=== PATIENT | female | born 1960 | race Caucasian/White ===

== ENCOUNTER 2024-12-18 09:13 | Outpatient (CLI) | payer MEDICARE, BC, SELFPAY | END 2024-12-18 09:14 | disposition home or self-care (01) | PROVIDERS: PCP Family Medicine; Visit Provider Family Medicine | DX: E78.2 Mixed hyperlipidemia (principal); I10 Essential (primary) hypertension; E11.9 Type 2 diabetes mellitus without complications; D64.9 Anemia, unspecified; Z79.4 Long term (current) use of insulin | CPT/HCPCS: 80048; 80061; 85025 ==

== ENCOUNTER 2025-01-15 06:32 | Day surgery (SDC) | payer MEDICARE, BC, SELFPAY ==
[2025-01-15] VITALS (36 sets, daily range): BP systolic 64–129; BP diastolic 33–83; PULSE 62–97; RESP 12–18; TEMP 35.3–36.7; O2SAT 91–100; BMI 47.4
--- NOTE | 2025-01-15 07:02 | W.PM.H&PU ---
History & Physical Update History & Physical Update H&P Reviewed and patient assessed: No changes noted
[2025-01-15] MEDS: SODIUM CHLORIDE 0.9 % (FLUSH) 10 ML SYRINGE IVF (07:45)
[2025-01-15] MEDS: LACTATED RINGERS 1000 ML 1,000 ML 100 ML IV ×3 (07:45→11:46)
[2025-01-15] MEDS: OXYCODONE (CR) 10 MG TAB.ER.12H PO (07:45)
[2025-01-15] MEDS: ACETAMINOPHEN 500 MG TABLET 1000 MG PO ×3 (07:45→20:18)
[2025-01-15] MEDS: MIDAZOLAM HCL 1 MG/ML inj IVP (08:30)
--- NOTE | 2025-01-15 08:30 | SUR.PREOP ---
TIME?OUT:?0829 PT/RN/MDA?VERIFICATION?OF?SURGICAL?SITE-RIGHT HIP, NERVE BLOCK,?PROCEDURE,?AND?CONSENT OBTAINED?PRIOR?TO?INVASIVE?PROCEDURE.
--- NOTE | 2025-01-15 08:36 | P.NB_ITS ---
Nerve Block Nerve Block Time Seen by Provider: 08:35 Date Seen: 01/15/25 Type of block requested by surgeon for post-operative analgesia: TABATHA/LFCN Side: right Time out performed: Yes Verification of patient name: Yes Verification of date of : Yes Site marking: site marked Name of person performing procedure: Brandt Continuous monitoring Was continuous monitoring of O2 sat, B/P, predatory animal exterminator, recorded every 15 minutes?: Yes Procedure Checklist: sterile prep, needles and gloves Ultrasound guided. Images saved: Yes Medications given in 5ml increments after negative aspiration: Ropivicaine %: 0.5 mL: 30 Needle gauge: 20 Precedex (mcg): 25 Patient tolerated procedure well: Yes Additional comments: Needle noted below psoas tendon needle noted adjacent to LFCN Block Charges Block Charge (with Pro Fee): Other Periph Nerve Block Use of Ultrasound Machine for Block: Yes- US Guidance/pain block
--- NOTE | 2025-01-15 08:45 | CRLHL7_ITS ---
For Patients: As a result of the Cures Act, medical imaging exams and procedure reports are released immediately into your electronic medical record. You may view this report before your referring provider. If you have questions, please contact your health care provider. Indication: Hip replacement surgery Technique: AP hip fluoroscopic image. Fluoroscopy time 40.5 seconds. Findings/Impression: Hardware from a right total hip arthroplasty is in satisfactory position. Dictated by Jack Woods MD @ 01/15/2025 12:13:15 PM (Electronically Signed)
[2025-01-15] MEDS: TRANEXAMIC ACID 100 MG/ML INJ 1000 MG IV (09:19)
--- NOTE | 2025-01-15 09:28 | CRLHL7_ITS ---
For Patients: As a result of the Cures Act, medical imaging exams and procedure reports are released immediately into your electronic medical record. You may view this report before your referring provider. If you have questions, please contact your health care provider. INDICATION: Post right hip arthroplasty TECHNIQUE: AP view of the pelvis as well as AP and lateral projections of the right hip COMPARISON: : Today`s intraoperative images FINDINGS: Immediate postop change of right total hip arthroplasty. Prosthetic components well-seated and aligned. IMPRESSION: : Immediate post postop change of right total hip arthroplasty without evidence of complication Dictated by Robert Chong MD @ 01/15/2025 4:54:30 PM (Electronically Signed)
--- NOTE | 2025-01-15 10:30 | P.ANES_ITS ---
Anesthesia Charges Start Date/Time Anesthesia Start Date: 01/15/25 Anesthesia Start Time: 08:55 Stop Date/Time Anesthesia Stop Date: 01/15/25 Anesthesia Stop Time: 11:44 Coding CPT Codes CPT Codes: ANESTH HIP ARTHROPLASTY - 25676 ([id number]) P3 - PATIENT W/SEVERE SYS DISEASE, QK - JOB SUPERINTENDENT 2-4 CNCRNT ANES PROC, QX - SENIOR PRODUCT CONSULTANT SVC W/ MD MED DIRECTION
--- NOTE | 2025-01-15 10:30 | W.ANESCHARGE ---
Anesthesia Charges Start Date/Time Anesthesia Start Date: 01/15/25 Anesthesia Start Time: 08:55 Stop Date/Time Anesthesia Stop Date: 01/15/25 Anesthesia Stop Time: 11:44 Coding CPT Codes CPT Codes: ANESTH HIP ARTHROPLASTY - 84292 ([id number]) P3 - PATIENT W/SEVERE SYS DISEASE, QK - CASHIER CREDIT 2-4 CNCRNT ANES PROC, QX - BACKEND DEVELOPER SVC W/ MD MED DIRECTION
--- NOTE | 2025-01-15 11:11 | P.ORPRC_ITS ---
Procedure Note Date of procedure: 01/15/25 Procedure: PREOPERATIVE DIAGNOSIS: 1. Right hip osteoarthritis, severe, primary 2. Morbid obesity POSTOPERATIVE DIAGNOSIS: 1. Right hip osteoarthritis, severe, primary 2. Morbid obesity PROCEDURE: 1. Right total hip arthroplasty-anterior approach- a modifier 22 is worthy as the patient's body habitus (BMI 47.4 and 1129.3 kg) made the surgical approach and procedure much more difficult. There is ~ 4 cm of subcutaneous fat before we gained access to the superficial fascia of the TFL. Beyond that, longer retractors and more assistants were needed. This overall added ~ 40-50% of time to our typical surgical case for a total hip replacement. 2. 72831 - intraoperative fluoroscopy up to 1 hour. SURGEON: Hill Escalona MD. PAINTER AND PAPERHANGER APPRENTICE: TAMIE Almonte; José Luis Lyles PA-C; - Of note, a skilled architectural administrative assistant was critical for this case to aid in patient positioning, tissue retraction, limb manipulation/positioning, and closure. ANESTHESIA: General endotracheal anesthetic EBL: 800ml IMPLANTS: DePuy J&J uncemented total hip [place] cup size 46, hole eliminator, +0 neutral liner Actis stem, high offset, size 3 +1.5 mm ceramic 28 mm head COMPLICATIONS: None evident INDICATIONS: The patient is a pleasant 64-year-old female who has experienced severe right hip pain and difficulty bearing weight. Workup included x-rays which revealed severe osteoarthrosis in the hip. Given the deformity, the dysfunction, and the pain, as well as the failure of nonoperative management, recommendation was made for surgery. FINDINGS: Full-thickness chondral loss throughout the femoral head. Not only conical shape to the femoral head in 7 severe call, but actually had an erosion of the superior femur had been gouged against the acetabular edge. Tremendous wear. DESCRIPTION OF PROCEDURE: Following a thorough discussion of risks, benefits, and alternatives consent was obtained and the right hip was marked. The patient was brought to the operating room and placed supine on the operating table. Induction of anesthesia was undertaken. 3 g IV Ancef and 1 g tranexamic acid was administered within 1 hr of incision preoperatively. Proper time-out was performed identifying proper patient, site, procedure. The operative extremity was prepped and draped in the appropriate sterile fashion using ChloraPrep after the patient was positioned on the [place] table with head in neutral alignment and all bony prominences well padded. C-arm fluoroscopic imaging was utilized to confirm proper pelvis rotation and position, and to get true AP films of both the contralateral left, and the affected right hip. This is for comparison. A longitudinal incision was made starting approximately 1 cm distal to the ASIS, and 2-3 cm lateral. The incision was extended distally aiming toward the fibular head. Sharp incision through skin and bovie cautery through the subcutaneous tissue allowed identification of the TFL fascia. This was sharply divided, and the fascia bluntly released from the muscle fibers as we dissected medial. Upon coming to the medial border, we were able to retract the TFL laterally, and penetrated the deeper fascia and identify the crossing circumflex vessels. These were ligated/cauterized. The rectus was elevated from the capsule, and retractors placed laterally and medially along the femoral neck to help with visualization of the capsule. We then performed an inverted T capsulotomy. The capsule was tagged for later repair. Retractors were placed inside the capsule. The femoral neck was visualized after releasing medially down to the lesser trochanter, along the saddle laterally, and up onto the acetabulum. The femoral neck cut was made in line with our preoperative templating. The head was removed in a single piece, and sized. We turned our attention to acetabular preparation. Initially, the labrum was resected from around the perimeter, the pulvinar was excised, allowing us to visualize the false wall. We started the reaming with a 43 mm reamer. This was medialized down to the true wall. We then enlarged our reamers sequentially up to one size less than the selected cup size. We trialed at the same size and found it to have an excellent fit. The selected cup was then opened, inserted, and impacted in line with the goal of 40? of abduction, and 20-25? of anteversion. This was confirmed on C-arm fluoroscopic imaging to be in the appropriate/goal position. Once the cup was placed we placed a hole eliminator and a liner consistent with preop planning. Attention was turned to the femoral preparation. The limb was extended, externally rotated, and adducted. The posteromedial capsule was released, as retractors were placed allowing excellent access to the proximal femur. Initially a binder and box builder was followed by canal finder followed by various broaches . We broached sequentially up to the size noted above, found it to have excellent rotational control, and trialing various heads and necks, revealed that appropriate neck offset, and the above noted head size provided the greatest stability, and hoahaoism of length, and offset. C-arm fluoroscopic imaging confirmed position of the stem, as well as leg lengths, which were compared with the pre procedure all fluoroscopic images. Trial implants were removed, the real femoral stem inserted, as was the appropriate head. After reducing, the leg was placed through range of motion and stability was confirmed anterior, posterior, and lateral. A 3 min Betadine soak was then performed, and thorough irrigation with normal saline followed. Closure of the capsule was performed with #1 PDS. Bleeding was confirmed to be controlled at this stage, and the TFL fascia was closed with #0 strata fix. Subcutaneous, and subcuticular closure was performed with 2-0 Stratafix and 4-0 Stratafix, respectively. Dressings were applied, and the patient was awoken from anesthesia and transferred the PACU in stable condition. A skilled architectural administrative assistant was critical for this case to aid in patient positioning, ti ssue retraction, acetabular and proximal femoral exposure, limb manipulation/positioning, dislocation/relocation, patient safety, and closure. * Again, given the patient's body habitus (BMI 47.4 and 1129.3 kg) made the surgical approach and procedure much more difficult. There is ~ 4 cm of subcutaneous fat before we gained access to the superficial fascia of the TFL. Beyond that, longer retractors and more assistants were needed. This overall added ~ 40-50% of time to our typical surgical case for a total hip replacement. PLAN: 1. Weight bear as tolerated operative extremity. 2. 23 hr perioperative antibiotics. 3. Ice. 4. PT/OT consults for ambulation assistance/mobility education. 5. Social work consult for discharge planning. 6. DVT prophylaxis with at SCDs and Xarelto x5 days followed by aspirin for a total of 1 month.
--- NOTE | 2025-01-15 11:45 | P.ANES_ITS ---
Anesthesia Charges Start Date/Time Anesthesia Start Date: 01/15/25 Anesthesia Start Time: 08:55 Stop Date/Time Anesthesia Stop Date: 01/15/25 Anesthesia Stop Time: 11:44 Coding CPT Codes CPT Codes: ANESTH HIP ARTHROPLASTY - 37555 ([id number]) P3 - PATIENT W/SEVERE SYS DISEASE, QK - MERCERIZER 2-4 CNCRNT ANES PROC, QX - CUSTOM FEED MILL OPERATOR SVC W/ MD MED DIRECTION
--- NOTE | 2025-01-15 11:45 | W.ANESCHARGE ---
Anesthesia Charges Start Date/Time Anesthesia Start Date: 01/15/25 Anesthesia Start Time: 08:55 Stop Date/Time Anesthesia Stop Date: 01/15/25 Anesthesia Stop Time: 11:44 Coding CPT Codes CPT Codes: ANESTH HIP ARTHROPLASTY - 29972 ([id number]) P3 - PATIENT W/SEVERE SYS DISEASE, QK - VALUER 2-4 CNCRNT ANES PROC, QX - AUTOMOBILE BODY CUSTOMIZER SVC W/ MD MED DIRECTION
[2025-01-15] MEDS: PHENYLEPHRINE 100 MCG/ML SYRINGE IVP ×3 (11:53→12:13)
[2025-01-15] MEDS: MEPERIDINE 25 MG/ML INJ 12.5 MG IVP (11:57)
[2025-01-15] MEDS: ONDANSETRON 2 MG/ML inj 4 MG IVP (13:11)
[2025-01-15] MEDS: LACTATED RINGERS 1000 ML 1,000 ML 75 ML IV ×2 (13:14→20:19)
--- NOTE | 2025-01-15 14:34 | REH.PT ---
2 attempts to see patient for PT eval this PM, pt with low BP per nsg, to eval in AM
--- NOTE | 2025-01-15 16:06 | PM.IMCN1 ---
Date of Consult Consult date: 01/15/25 Requesting Physician: Orthopedics Primary Care Provider: Jack Helm MD Consult Narrative Reason for consult: Medical management of comorbidities Narrative: Meena Alvarenga is a 64 year old female who presented to the hospital today for an elective R ETHEL with Dr. Escalona of Orthopedic Surgery. There were no surgical or anesthetic complications noted during procedure, EBL was 800mL. Postoperatively, had hypotension with associated nausea, BP uri 76/46. No lightheadedness or pre-syncope. Responded well to IVFs with increase in BP to 110s/60s (baseline BP 126/70). No tachycardia, HR in the 70s. Patient's H&P reviewed, PCP is Dr. Helm. Past medical history significant for: IDDM2 (last A1c 6.0), osteoarthritis, hyperlipidemia, urge incontinence. History of blood clots: No Postoperative plan: Home with Review of Systems Status of ROS: Reports: 10 or more systems reviewed and unremarkable except as noted in History and below [facility] Medical History (Updated 01/15/25 @ 16:24 by Ashlyn Hancock MD) Mixed hyperlipidemia ?E78.2 - Mixed hyperlipidemia (ICD-10) Primary hypertension ?I10 - Essential (primary) hypertension (ICD-10) Type 2 diabetes mellitus, with long-term current use of insulin ?E11.9 - Type 2 diabetes mellitus without complications (ICD-10) ?Z79.4 - [facility] (current) use of insulin (ICD-10) Peripheral neuropathy ?G62.9 - Polyneuropathy, unspecified (ICD-10) Myofascial pain syndrome ?M79.18 - Myalgia, other site (ICD-10) Sensorineural hearing loss (SNHL) of both ears ?H90.3 - Sensorineural hearing loss, bilateral (ICD-10) GERD (gastroesophageal reflux disease) ?K21.9 - Gastro-esophageal reflux disease without esophagitis (ICD-10) Osteoarthritis of left hip ?M16.12 - Unilateral primary osteoarthritis, left hip (ICD-10) Morbid obesity ?E66.01 - Morbid (severe) obesity due to excess calories (ICD-10) Overactive bladder ?N32.81 - Overactive bladder (ICD-10) Fibromyalgia ?M79.7 - Fibromyalgia (ICD-10) Cystoid macular degeneration ?H35.359 - Cystoid macular degeneration, unspecified eye (ICD-10) Colon polyps ?K63.5 - Polyp of colon (ICD-10) Chronic anemia ?D64.9 - Anemia, unspecified (ICD-10) IBS (irritable bowel syndrome) ?K58.9 - Irritable bowel syndrome, unspecified (ICD-10) Surgical History (Updated 01/15/25 @ 16:23 by Ashlyn Hancock MD) S/P hip replacement ?Z96.649 - Presence of unspecified artificial hip joint (ICD-10) History of total right hip arthroplasty (01/15/25) ?Z96.641 - Presence of right artificial hip joint (ICD-10) History of vaginal hysterectomy ?Z90.710 - Acquired absence of both cervix and uterus (ICD-10) History of cataract surgery ?Z98.49 - Cataract extraction status, unspecified eye (ICD-10) History of tonsillectomy and adenoidectomy ?Z90.89 - Acquired absence of other organs (ICD-10) S/P laparotomy ?Z98.890 - Other specified postprocedural states (ICD-10) S/P trigger finger release ?Z98.890 - Other specified postprocedural states (ICD-10) H/O esophagogastroduodenoscopy ?Z98.890 - Other specified postprocedural states (ICD-10) History of right mastoidectomy (04/14/23) ?Z90.89 - Acquired absence of other organs (ICD-10) History of cholecystectomy (2005) ?Z90.49 - Acquired absence of other specified parts of digestive tract (ICD-10) History of placement of ear tubes ?Z96.22 - Myringotomy tube(s) status (ICD-10) Family History (Updated 12/11/24 @ 10:00 by Delia Ordaz) Mother Diabetes High blood pressure High cholesterol Throat cancer Coronary artery disease Sister Sarcoma Lung cancer Brother Prostate cancer Alcohol dependence Father Alcohol dependence High blood pressure Coronary artery disease Aunt Breast cancer Ovarian cancer Son ADD (attention deficit disorder) Rheumatoid arthritis Aunt Rheumatoid arthritis Social History (Updated 12/19/24 @ 08:43 by Madelin Sánchez MLT) Narrative: , two kids, lives with her son and grandson, retired, no EtOH What is your current living situation?: I presently have a place to live Problems where you live: no known problems In the past 12 months, utilities in danger of being shut off: no In past 12 months, lack of transportation kept you from medical appts, meetings, work, or getting things needed for daily living: no In the past 12 mos, have been you worried that your food would run out before you had money to buy more?: never true In the past 12 mos, the food you bought just didn't last and you didn't have money to buy more?: never true Highest level of school completed/degree received: high school graduate Smoking Status: Former smoker Do you use any of these nicotine containing products: None Second hand tobacco smoke exposure: No How often do you have a drink containing alcohol: monthly or less Alcohol type: wine How many standard drinks containing alcohol do you have on a typical day: 1 or 2 How often do you have six or more drinks on one occasion: Never AUDIT-C Alcohol total score: 1 Non-prescribed substance use: denies use Caffeine: Yes (ocassional coffee) How often does anyone, including family, friends and others, physically hurt you: never How often does anyone, including family, friends and others, insult or talk down to you: never How often does anyone, including family, friends and others, threaten you with harm: never How often does anyone, including family, friends and others, scream or curse at you: never service: No Meds Home Medications and Allergies Home Medications ?Medication ?Instructions ?Recorded ?Confirmed ?Type flash glucose sensor (FreeStyle #1 ea 04/07/24 12/18/24 History Melissa 2 Sensor kit) vitamin A-vitamin C-vit E-min 1 tab PO QDAY 11/21/24 01/15/25 History tablet atorvastatin 10 mg tablet 5 mg (1/2 x 10 mg) PO DAILY #45 12/19/24 01/15/25 Rx tabs gabapentin 600 mg tablet 1,200 mg (2 x 600 mg) PO TID #540 12/19/24 01/15/25 Rx tabs insulin glargine 100 unit/mL (3 18 unit (0.18 mL) subcut QPM 90 12/19/24 01/15/25 Rx mL) subcutaneous pen (Lantus days #30 mL Solostar U-100 Insulin) insulin lispro 100 unit/mL 8 unit (0.08 mL) subcut TID 90 12/19/24 01/15/25 Rx subcutaneous pen (Humalog KwikPen days #30 mL (U-100) Insulin) lisinopril 2.5 mg tablet 2.5 mg PO DAILY #90 tabs 12/19/24 01/15/25 Rx nabumetone 750 mg tablet 750 mg PO DAILY #90 tabs 12/19/24 01/15/25 Rx oxybutynin chloride 5 mg tablet 5 mg PO DAILY #90 tabs 12/19/24 01/15/25 Rx Allergies Allergy/AdvReac Type Severity Reaction Status Date / Time No Known Drug Allergies Allergy Verified 01/15/25 06:50 Exam Narrative: Exam Narrative: GEN: Alert and oriented, laying comfortably in bed, answering questions appropriately HEENT: Normal external ears, EOMIs bilaterally, no scleral icterus CV: RRR, No concerning murmurs R: LCTA bilaterally without concerning wheezing Ext: wwp, wearing BLE SCDs Skin: No concerning skin lesions or rashes on exposed skin Neuro: No focal deficits, mentating appropriately Psych: Appropriate Const: Vital Signs, click to edit/add: Vital Signs - 24 hr 01/15/25 07:37 01/15/25 08:30 01/15/25 08:35 Temperature 97.3 F L Pulse Rate 74 71 71 Pulse Rate [Right Pulse Oximeter] Respiratory Rate 16 12 12 Blood Pressure 127/72 111/59 L 91/65 Blood Pressure [Ri ght Arm] Pulse Oximetry 97 92 91 Oxygen Delivery Me thod Room Air Nasal Cannula Nasal Cannula Oxygen Flow Rate 2 2 01/15/25 08:40 01/15/25 08:45 01/15/25 11:40 Temperature 97.3 F L Pulse Rate 72 76 68 Pulse Rate [Right Pulse Oximeter] Respiratory Rate 12 12 12 Blood Pressure 92/83 91/51 L 80/44 L Blood Pressure [Ri ght Arm] Pulse Oximetry 94 93 98 Oxygen Delivery Me thod Nasal Cannula Nasal Cannula Nasal Cannula Oxygen Flow Rate 2 2 2 01/15/25 11:45 01/15/25 11:50 01/15/25 11:55 Temperature 97.6 F Pulse Rate 71 71 68 Pulse Rate [Right Pulse Oximeter] Respiratory Rate 12 12 14 Blood Pressure 83/67 L 84/52 L 98/57 L Blood Pressure [Ri ght Arm] Pulse Oximetry 96 99 98 Oxygen Delivery Me thod Nasal Cannula Nasal Cannula Nasal Cannula Oxygen Flow Rate 2 2 2 01/15/25 12:00 01/15/25 12:05 01/15/25 12:10 Temperature 97.6 F Pulse Rate 68 64 64 Pulse Rate [Right Pulse Oximeter] Respiratory Rate 14 14 14 Blood Pressure 83/51 L 93/45 L 74/55 L Blood Pressure [Ri ght Arm] Pulse Oximetry 100 97 97 Oxygen Delivery Me thod Nasal Cannula Nasal Cannula Nasal Cannula Oxygen Flow Rate 2 2 2 01/15/25 12:15 01/15/25 12:20 01/15/25 12:31 Temperature 95.5 F L Pulse Rate 70 70 Pulse Rate [Right Pulse Oximeter] 64 Respiratory Rate 14 14 18 Blood Pressure 108/80 129/83 Blood Pressure [Ri ght Arm] 76/46 L Pulse Oximetry 99 99 95 Oxygen Delivery Me thod Nasal Cannula Nasal Cannula Nasal Cannula Oxygen Flow Rate 2 2 2 01/15/25 12:48 01/15/25 13:03 01/15/25 13:18 Temperature 95.5 F L 96.0 F L 95.9 F L Pulse Rate 64 63 62 Pulse Rate [Right Pulse Oximeter] Respiratory Rate 18 18 16 Blood Pressure 76/46 L 70/42 L 67/47 L Blood Pressure [Ri ght Arm] Pulse Oximetry 95 95 92 Oxygen Delivery Me thod Nasal Cannula Nasal Cannula Nasal Cannula Oxygen Flow Rate 2 2 2 01/15/25 13:20 01/15/25 13:30 01/15/25 13:40 Temperature 96.2 F L 96.2 F L 96.9 F L Pulse Rate 70 70 68 Pulse Rate [Right Pulse Oximeter] Respiratory Rate 18 18 18 Blood Pressure 78/54 L 83/52 L 89/57 L Blood Pressure [Ri ght Arm] Pulse Oximetry 99 94 96 Oxygen Delivery Me thod Nasal Cannula Nasal Cannula Nasal Cannula Oxygen Flow Rate 2 2 1.5 01/15/25 14:00 01/15/25 14:30 01/15/25 15:00 Temperature 96.4 F L 96.8 F L 96.8 F L Pulse Rate 72 71 74 Pulse Rate [Right Pulse Oximeter] Respiratory Rate 18 18 18 Blood Pressure 101/59 L 90/60 84/54 L Blood Pressure [Ri ght Arm] Pulse Oximetry 96 93 95 Oxygen Delivery Me thod Nasal Cannula Nasal Cannula Nasal Cannula Oxygen Flow Rate 1.5 1 1 01/15/25 15:00 01/15/25 15:30 Temperature 97.5 F L Pulse Rate Pulse Rate [Right Pulse Oximeter] 76 Respiratory Rate 16 Blood Pressure Blood Pressure [Ri ght Arm] 95/61 Pulse Oximetry 97 97 Oxygen Delivery Me thod Room Air Room Air Oxygen Flow Rate Assessment and Plan Assessment and plan (1) S/P hip replacement: Problem comment: - RIGHT, 01/15/25, Dr. Escalona Status: Acute (2) Postoperative hypotension: Problem comment: - possibly iatrogenic from anesthesia vs acute blood loss 2/2 surgery - follow Hgb and VS - baseline BP 120/70s Status: Acute Plan - follow Hgb and VS - pain management and prophylaxis per orthopedic surgery team - continue home medications for comorbidities - anticipate routine postoperative course - updated bedside, questions answered
[2025-01-15] MEDS: CEFAZOLIN 3 GM in 0.9 % SODIUM CHLORIDE Mini-bag 100 ML IVPB (17:18)
[2025-01-15] MEDS: INSULIN LISPRO 100 UNIT/ML 8 EACH SUBCUT (18:45)
[2025-01-15] MEDS: INSULIN LISPRO 100 UNIT/ML SUBCUT (19:35)
[2025-01-15 19:46] LABS: Hemoglobin* 10.3 gm/dL (12.0-16.0)
[2025-01-15] MEDS: GABAPENTIN 600 MG TABLET 1200 MG PO (20:18)
[2025-01-15] MEDS: SENNOSIDES 1 TAB TABLET 2 TAB PO (20:18)
[2025-01-15] MEDS: 0.9 % SODIUM CHLORIDE 500 ML IV (20:19)
--- NOTE | 2025-01-15 23:07 | PC.NURSE ---
End of Shift: Patient pleasant and cooperative. Afebrile. Dressing to right hip C/D/I. CMS intact. Rating pain up to 8/10 and PRN Oxycodone given x2. Tolerating regular diet with no nausea. BP continues to be in the 90s-100 systolic at times, denies any lightheadedness/dizziness at rest. Patient up with 2 assist, walker and gait belt to chair. Patient c/o dizziness when up, BP decreased. Updated MD. Hemoglobin drawn and 500 mL bolus given. Jennings patent and patient had 125 mL and 150 mL output, updated MD.
[2025-01-16] VITALS (8 sets, daily range): BP systolic 86–112; BP diastolic 51–66; PULSE 88–101; RESP 16; TEMP 36.8–37.7; O2SAT 96–98
[2025-01-16] MEDS: CEFAZOLIN 3 GM in 0.9 % SODIUM CHLORIDE Mini-bag 100 ML IVPB (00:31)
[2025-01-16] MEDS: ACETAMINOPHEN 500 MG TABLET 1000 MG PO ×2 (00:35→07:47)
--- NOTE | 2025-01-16 05:27 | PC.NURSE ---
Shift note: Patient's Bp has been soft this shift and has been monitored hourly. No significantly decreased. The lowest Bp was 88/59. Patient has been in the recliner throughout the shift. Dressing intact, clean and dry. Ice pack applied. has been with patient in room for the entire night.
[2025-01-16 06:54] LABS: Hematocrit 32.9 % (33.0-51.0); Hemoglobin* 10.6 gm/dL (12.0-16.0); Immature Granulocytes Pct Auto 0.3 %; Lymphocytes Absolute Auto 2.30 K/uL (0.90-2.90); Mean Corpuscular HGB Conc 32 gm/dL (32-36); Mean Corpuscular Hemoglobin 29 pg (26-34); Mean Corpuscular Volume 91 fL (80-100); RDW Coefficient of Variation % 13.6 % (11.5-15.5); Red Blood Count 3.63 m/uL (4.00-5.20); White Blood Count* 15.47 K/uL (4.50-11.00)
[2025-01-16 07:04] LABS: Immature Granulocytes Abs Auto 0.00 K/uL (0.00-0.30)
[2025-01-16 07:05] LABS: Slide Review Reflex No
[2025-01-16 07:08] LABS: Chloride* 99 mmol/L (96-114); Sodium* 130 mmol/L (135-149)
[2025-01-16 07:09] LABS: Potassium* 4.5 mmol/L (3.6-5.1)
[2025-01-16 07:11] LABS: Blood Urea Nitrogen* 25 mg/dL (7-30); Creatinine* 1.2 mg/dL (0.5-1.5); Est. Creatinine Clearance* 41.50; Estimated Glomerular Filt Rate 50 ml/min
[2025-01-16 07:12] LABS: Anion Gap 5 mEq/L (7-15); Calcium* 8.4 mg/dL (8.4-10.6); Carbon Dioxide* 26 mmol/L (20-32); Glucose* 149 mg/dL (60-115)
[2025-01-16] MEDS: INSULIN LISPRO 100 UNIT/ML SUBCUT ×2 (07:49→12:43)
[2025-01-16] MEDS: INSULIN LISPRO 100 UNIT/ML 8 EACH SUBCUT ×2 (07:49→12:43)
--- NOTE | 2025-01-16 08:20 | PC.SOCIAL ---
Discharge planning: SW met with patient and partner who state that they have everything they need at home. Patient reports that she has been getting prepared for the last few weeks and feels like she is ready to go home. SW to assist if needs arise.
[2025-01-16] MEDS: GABAPENTIN 600 MG TABLET 1200 MG PO (09:10)
[2025-01-16] MEDS: RIVAROXABAN 10 MG TABLET PO (09:11)
[2025-01-16] MEDS: SENNOSIDES 1 TAB TABLET 2 TAB PO (09:11)
[2025-01-16] MEDS: ATORVASTATIN CALCIUM 10 MG TABLET 5 MG PO (09:12)
--- NOTE | 2025-01-16 10:39 | PM.ORPN ---
Subjective Subjective Date Seen: 01/16/25 Principal diagnosis: Status postop day 1, right total hip arthroplasty - anterior approach Interval history: Patient reports doing well. No acute events over night. Pain managed with scheduled and PRN medications, ice. DVT prophylaxis: Rivaroxaban, SCDs, walking. Denies fevers, chills, aches, N/V, CP, SOB/LARSON, or lightheadedness. Passing flatus. Per chart review and nurse comments, she is demonstrating softer blood pressures in not producing normal amounts of urine. Jennings catheter in place. Ortho Exam Narrative Exam Narrative: -Patient appears comfortable in recliner; no apparent acute distress -Alert and oriented times 3 -Operative hip swollen; soft tissues supple; no obvious erythema. Ecchymosis minimal. Warmth appropriate -Surgical dressing clean, dry, intact; no obvious drainage, no erythematous streaking peripheral to the bandage. Abdominal pannus covers the wound and bandage completely -Bilateral calves soft and supple; no significant swelling, edema, tenderness, erythema, discoloration, warmth, or palpable cords -2+ DP/PT pulses, intact dermatomes and myotomes distally (5/5 strength). No numbness about the lateral femoral cutaneous nerve distribution. -Jennings catheter in place Const Vital Signs, click to edit/add: Vital Signs - 24 hr 01/15/25 11:40 01/15/25 11:45 01/15/25 11:50 Temperature 97.3 F L Pulse Rate 68 71 71 Pulse Rate [Right Pulse Oximeter] Respiratory Rate 12 12 12 Blood Pressure 80/44 L 83/67 L 84/52 L Blood Pressure [Left Arm] Blood Pressure [Right Arm] Pulse Oximetry 98 96 99 Oxygen Delivery Method Nasal Cannula Nasal Cannula Nasal Cannula Oxygen Flow Rate 2 2 2 01/15/25 11:55 01/15/25 12:00 01/15/25 12:05 Temperature 97.6 F Pulse Rate 68 68 64 Pulse Rate [Right Pulse Oximeter] Respiratory Rate 14 14 14 Blood Pressure 98/57 L 83/51 L 93/45 L Blood Pressure [Left Arm] Blood Pressure [Right Arm] Pulse Oximetry 98 100 97 Oxygen Delivery Method Nasal Cannula Nasal Cannula Nasal Cannula Oxygen Flow Rate 2 2 2 01/15/25 12:10 01/15/25 12:15 01/15/25 12:20 Temperature 97.6 F Pulse Rate 64 70 70 Pulse Rate [Right Pulse Oximeter] Respiratory Rate 14 14 14 Blood Pressure 74/55 L 108/80 129/83 Blood Pressure [Left Arm] Blood Pressure [Right Arm] Pulse Oximetry 97 99 99 Oxygen Delivery Method Nasal Cannula Nasal Cannula Nasal Cannula Oxygen Flow Rate 2 2 2 01/15/25 12:31 01/15/25 12:48 01/15/25 13:03 Temperature 95.5 F L 95.5 F L 96.0 F L Pulse Rate 64 63 Pulse Rate [Right Pulse Oximeter] 64 Respiratory Rate 18 18 18 Blood Pressure 76/46 L 70/42 L Blood Pressure [Left Arm] Blood Pressure [Right Arm] 76/46 L Pulse Oximetry 95 95 95 Oxygen Delivery Method Nasal Cannula Nasal Cannula Nasal Cannula Oxygen Flow Rate 2 2 2 01/15/25 13:18 01/15/25 13:20 01/15/25 13:30 Temperature 95.9 F L 96.2 F L 96.2 F L Pulse Rate 62 70 70 Pulse Rate [Right Pulse Oximeter] Respiratory Rate 16 18 18 Blood Pressure 67/47 L 78/54 L 83/52 L Blood Pressure [Left Arm] Blood Pressure [Right Arm] Pulse Oximetry 92 99 94 Oxygen Delivery Method Nasal Cannula Nasal Cannula Nasal Cannula Oxygen Flow Rate 2 2 2 01/15/25 13:40 01/15/25 14:00 01/15/25 14:30 Temperature 96.9 F L 96.4 F L 96.8 F L Pulse Rate 68 72 71 Pulse Rate [Right Pulse Oximeter] Respiratory Rate 18 18 18 Blood Pressure 89/57 L 101/59 L 90/60 Blood Pressure [Left Arm] Blood Pressure [Right Arm] Pulse Oximetry 96 96 93 Oxygen Delivery Method Nasal Cannula Nasal Cannula Nasal Cannula Oxygen Flow Rate 1.5 1.5 1 01/15/25 15:00 01/15/25 15:00 01/15/25 15:00 Temperature 96.8 F L Pulse Rate 74 Pulse Rate [Right Pulse Oximeter] 76 Respiratory Rate 18 16 Blood Pressure 84/54 L Blood Pressure [Left Arm] Blood Pressure [Right Arm] Pulse Oximetry 95 97 Oxygen Delivery Method Nasal Cannula Room Air Oxygen Flow Rate 1 01/15/25 15:30 01/15/25 16:00 01/15/25 16:30 Temperature 97.5 F L 97.6 F Pulse Rate Pulse Rate [Right Pulse Oximeter] 76 76 87 Respiratory Rate 16 16 16 Blood Pressure Blood Pressure [Left Arm] Blood Pressure [Right Arm] 95/61 110/66 122/72 Pulse Oximetry 97 96 95 Oxygen Delivery Method Room Air Room Air Room Air Oxygen Flow Rate 01/15/25 17:30 01/15/25 18:30 01/15/25 19:12 Temperature 98.0 F Pulse Rate Pulse Rate [Right Pulse Oximeter] 95 88 Respiratory Rate 16 16 Blood Pressure Blood Pressure [Left Arm] Blood Pressure [Right Arm] 91/54 L 102/62 64/33 L Pulse Oximetry 92 94 Oxygen Delivery Method Room Air Room Air Oxygen Flow Rate 01/15/25 19:17 01/15/25 19:30 01/15/25 20:00 Temperature Pulse Rate Pulse Rate [Right Pulse Oximeter] Respiratory Rate Blood Pressure Blood Pressure [Left Arm] Blood Pressure [Right Arm] 90/77 96/59 L 111/64 Pulse Oximetry Oxygen Delivery Method Oxygen Flow Rate 01/15/25 21:00 01/15/25 22:00 01/15/25 23:00 Temperature Pulse Rate Pulse Rate [Right Pulse Oximeter] 97 97 Respiratory Rate 16 Blood Pressure Blood Pressure [Left Arm] Blood Pressure [Right Arm] 99/69 110/68 Pulse Oximetry Oxygen Delivery Method Oxygen Flow Rate 01/15/25 23:00 01/15/25 23:00 01/16/25 01:00 Temperature 97.9 F Pulse Rate Pulse Rate [Right Pulse Oximeter] 97 Respiratory Rate 16 16 Blood Pressure Blood Pressure [Left Arm] 86/66 L Blood Pressure [Right Arm] 122/65 Pulse Oximetry 96 96 Oxygen Delivery Method Room Air Room Air Oxygen Flow Rate 01/16/25 01:05 01/16/25 01:10 01/16/25 03:00 Temperature 98.2 F Pulse Rate Pulse Rate [Right Pulse Oximeter] 88 Respiratory Rate 16 Blood Pressure Blood Pressure [Left Arm] 105/59 L 112/60 101/53 L Blood Pressure [Right Arm] Pulse Oximetry 96 Oxygen Delivery Method Room Air Oxygen Flow Rate 01/16/25 05:00 01/16/25 07:43 01/16/25 07:43 Temperature 98.5 F Pulse Rate Pulse Rate [Right Pulse Oximeter] 101 H 101 H Respiratory Rate 16 16 Blood Pressure Blood Pressure [Left Arm] 95/56 L 109/51 L Blood Pressure [Right Arm] Pulse Oximetry 97 Oxygen Delivery Method Room Air Oxygen Flow Rate 01/16/25 07:43 Temperature Pulse Rate Pulse Rate [Right Pulse Oximeter] Respiratory Rate 16 Blood Pressure Blood Pressure [Left Arm] Blood Pressure [Right Arm] Pulse Oximetry 97 Oxygen Delivery Method Room Air Oxygen Flow Rate Assessment and Plan Assessment and plan (1) S/P hip replacement: Problem details: - RIGHT, 01/15/25, Dr. Escalona Status: Acute (2) Postoperative hypotension: Problem details: - possibly iatrogenic from anesthesia vs acute blood loss 2/2 surgery - follow Hgb and VS - baseline BP 120/70s Status: Acute (3) Type 2 diabetes mellitus, with long-term current use of insulin: Status: Acute (4) Morbid obesity: Problem details: BMI 45.1 (previous BMI of 48.1) Status: Chronic Plan - Complete 23 hour perioperative antibiotics. - PT/OT consult for education and assistance. - Social work consult for discharge planning - Prescribed analgesics as needed - DVT prophylaxis: Rivaroxaban, walking, and SCDs - Anticipation is for discharge to home with family today 01/16/2025 if the patient remains medically stable, pain is controlled, and they are safe with mobilization. Her discharge also depends on maintaining adequate blood pressures and good urine output without further need of Jennings catheter.
--- NOTE | 2025-01-16 14:03 | PC.NURSE ---
Discharge: Patient pleasant and cooperative. Patient vitally stable, lungs clear, BS WNL, IV SL and intact. Patient rates right hip dressing at most 8/10, otherwise 3/10, schedule tylenol given and 5mg of oxy given once. Right hip dressing C/D/I, active ice used on wound. Patient tolerating regular diet. Jennings removed, tip intact, urinating well by toilet. Patient report lightheadedness this morning with activity but with second round of therapies light headedness resolved, mid day BP's were more normalized, see vitals. Patient signed belongings sheet and discharge form, patient had no further questions regarding education. Patient left the floor with spouse and belongings by wheelchair to home at 1400.
== END 2025-01-16 14:00 | disposition home or self-care (01) ==
LOC: OR 06:34 → MEDSURG 06:34
PROVIDERS: Family Medicine; PCP Family Medicine; Visit Provider Orthopaedic Surgery Sports Medicine
PROC: (CPT 27130; principal; 2025-01-15 08:45)
DX: M16.11 Unilateral primary osteoarthritis, right hip (principal); G89.18 Other acute postprocedural pain; I95.81 Postprocedural hypotension; E66.01 Morbid (severe) obesity due to excess calories; Z68.42 Body mass index [BMI] 45.0-49.9, adult; R11.0 Nausea; N39.41 Urge incontinence; E11.42 Type 2 diabetes mellitus with diabetic polyneuropathy; Z79.4 Long term (current) use of insulin; I10 Essential (primary) hypertension; E78.2 Mixed hyperlipidemia
CPT/HCPCS: 27130; 01214; 36415; 51701; 64450; 73501; 76000; 76942; 80048; 82962; 85018; 85025; 97110; 97116; 97161; 97165; 97530; 97535; A9270; C1776; J0330; J0690; J1100; J1171; J1815; J2175; J2250; J2371; J2405; J2704; J2795; J3010; J3490; J7030; J7120

== ENCOUNTER 2025-04-12 08:00 | Outpatient (CLI) | payer MEDICARE, BC, SELFPAY | END 2025-04-12 08:01 | disposition home or self-care (01) | LOC: NFLDREF 04-16 03:28 | PROVIDERS: PCP Family Medicine; Referring Provider Family Medicine; Visit Provider Family Medicine | DX: E11.69 Type 2 diabetes mellitus with other specified complication (principal); Z79.4 Long term (current) use of insulin | CPT/HCPCS: 82043; 82570; 87086 ==